=== PATIENT | female | born 1940 | race Caucasian/White ===

== ENCOUNTER 2016-07-19 11:37 | Emergency (ER) | payer OTHER ==
[2016-07-19 11:53] VITALS: BP 135/92; PULSE 70; RESP 18; TEMP 98; O2SAT 97
--- NOTE | 2016-07-19 12:04 | UCPHY ---
H & P Time Seen by Provider: 07/19/16 11:48 Patient Type: New HPI/ROS: This patient presents with a chief complaint of farm body in her left ear which occurred when she was cleaning her ear with a Q-tip and the head of a Q-tip remained behind. She has no symptoms and no other complaints per Smoking Status: Never smoked Physical Exam: Is a well-developed well-nourished female no acute distress. She is alert, lucid and has normal mental status. Examination of the left ear reveals some cotton present in the external auditory canal. Constitutional: Initial Vital Signs Temperature (C) 36.6 C 07/19/16 11:50 Heart Rate 70 07/19/16 11:50 Respiratory Rate 18 07/19/16 11:50 Blood Pressure 135/92 H 07/19/16 11:50 O2 Sat (%) 97 07/19/16 11:50 O2 Delivery Mode Room Air Allergies/Adverse Reactions: Penicillins Allergy (Verified 07/19/16 11:49) Home Medications: Medication Instructions Recorded Albuterol 07/19/16 Carvedilol 07/19/16 Losartan Potassium 07/19/16 PROVENTIL HFA 07/19/16 Medical Decision Making ED Course/Re-evaluation: The con was grasped with an alligator forceps and easily removed. Examination of the ear after removal shows it to be entirely normal. Departure - Departure Disposition: Home, Routine, Self-Care Clinical Impression: Foreign body in ear Qualifiers: Encounter type: initial encounter Laterality: left Qualifier Code: (T16.2XXA) Foreign body in left ear, initial encounter Condition: Good Instructions: Ear Foreign Body (ED) Referrals: Mendy Gutierrez MD [Primary Care Provider] - As per Instructions - PQRS PQRS Measurement: Not applicable
== END 2016-07-19 12:06 | disposition home or self-care (01) ==
LOC: CED 11:37
DX: S00.452A Superficial foreign body of left ear, initial encounter (principal)
CPT/HCPCS: 99202-PO; G0463-PO

== ENCOUNTER → 2016-08-21 | Outpatient (CLI) | payer OTHER | LOC: CIMAGING 12:30 | PROVIDERS: ATTEND Internal Medicine | DX: M15.4 Erosive (osteo)arthritis (principal) | CPT/HCPCS: 73120-PO ==

== ENCOUNTER → 2017-06-08 | Outpatient (CLI) | payer OTHER | LOC: BRMIMAGING 10:27 | PROVIDERS: ATTEND Internal Medicine | DX: Z12.31 Encounter for screening mammogram for malignant neoplasm of breast (principal) | CPT/HCPCS: G0202 ==

== ENCOUNTER → 2017-06-14 | Outpatient (CLI) | payer OTHER | LOC: BRMIMAGING 13:25 | PROVIDERS: ATTEND Internal Medicine | DX: Z13.820 Encounter for screening for osteoporosis (principal); M85.89 Other specified disorders of bone density and structure, multiple sites ==

== ENCOUNTER → 2017-06-29 | Outpatient (CLI) | payer OTHER | LOC: BHCLAF 11:30 | PROVIDERS: ATTEND Internal Medicine Cardiovascular Disease | DX: R06.02 Shortness of breath (principal); R01.1 Cardiac murmur, unspecified | CPT/HCPCS: 93306-PO ==

== ENCOUNTER → 2018-06-11 | Outpatient (CLI) | payer OTHER | LOC: BRMIMAGING 13:22 | PROVIDERS: ATTEND Internal Medicine | DX: Z12.31 Encounter for screening mammogram for malignant neoplasm of breast (principal) ==